=== PATIENT | female | born 1980 | race American Indian/Alaskan Native ===

== ENCOUNTER 2018-12-29 08:49 | Emergency (ER) | payer OTHER ==
[2018-12-29] MEDS ORDERED: TORADOL IM ONE (11:40)
[2018-12-29] MEDS ORDERED: ROBAXIN PO ONE (11:40)
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
[2018-12-29 12:53] VITALS: BP 114/72
== END 2018-12-29 12:54 | disposition home or self-care (01) ==
LOC: ED 08:49
DX: M62.830 Muscle spasm of back (principal); J45.909 Unspecified asthma, uncomplicated; Z79.899 Other long term (current) drug therapy; V49.40XA Driver injured in collision with unspecified motor vehicles in traffic accident, initial encounter; Y93.89 Activity, other specified; Y92.410 Unspecified street and highway as the place of occurrence of the external cause; Y99.8 Other external cause status
CPT/HCPCS: 96372; 99282; J1885